=== PATIENT | female | born 2005 | race Caucasian/White ===

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

== ENCOUNTER 2025-01-12 21:32 | Emergency (ER) | payer BC ==
[~2025-01-12] VITALS: Ht 149.8 cm; Wt 54.4 kg
[2025-01-12] MEDS ORDERED: PRENATABS RX T1 EACH PO (21:51)
[2025-01-12 22:02] LABS: BILIRUBIN Negative (Negative); BLOOD Negative (Negative); CLARITY Clear (Clear); COLOR Yellow (Yellow); GLUCOSE Negative (Negative); KETONE Trace (Negative); LEUKO ESTERASE Trace (Negative); NITRITE Negative (Negative); SPECIFIC GRAVITY 1.025 (1.001-1.030)
[2025-01-12 22:11] LABS: BACTERIA 2+; MUCOUS 1+
[2025-01-12] MEDS ORDERED: Nitrofurantoin Monohydrate/N 100 MG CAP PO ONE (22:25)
== END 2025-01-12 22:22 | disposition home or self-care (01) ==
LOC: ED 21:32
PROVIDERS: Nurse Practitioner Family
DX: O23.41 Unspecified infection of urinary tract in pregnancy, first trimester (principal); N39.0 Urinary tract infection, site not specified; Z91.018 Allergy to other foods; Z79.899 Other long term (current) drug therapy; Z3A.01 Less than 8 weeks gestation of pregnancy